=== PATIENT | male | born 1990 | race Hispanic/Latino ===

== ENCOUNTER 2016-07-30 03:02 | Inpatient (IN) | payer SELFPAY ==
[~2016-07-30] VITALS: Ht 157.5 cm; Wt 91.0 kg
[2016-07-30] VITALS (10 sets, daily range): BP systolic 115–157; BP diastolic 61–106; PULSE 65–92; RESP 18–25; O2SAT 88–99
--- NOTE | 2016-07-30 03:06 | ED.REPORT ---
HPI-Overdose/Alcohol Toxicity Date of Service Jul 30, 2016 ED Provider: Luis Fernando Brandt MD Patient is a 25 year old male with a history of polysubstance abuse who presents to the ED after an accidental heroin overdose this morning. This was the first time the patient has ever used heroin, which he smoked. Patient denies using opiate pain medication regularly and states that he did not use Percocet or Vicodin this evening. Patient admitted to his prior to going to bed that he smoked heroin for the first time tonight. She states that he was behaving oddly and seemed very drowsy. After saying dilan, she turned around and found him unconscious after vomiting. She initiated CPR. Patient was found to be cyanotic on arrival with a rate in the 40s. He was found to have vomited and likely aspirated. Patient was in the low 90s on room air. Patient was given 1mg SL Narcan initially while establishing IV access, followed by 1mg Narcan IV. Patient woke up and become agitated. He ultimately was placed into restraints by EMS. Patient is short of breath and coughing on arrival to the ED , with chest pain. He feels fully awake. Patient states that he is otherwise healthy. Nursing Notes Stated Complaint: OVERDOSE Nursing Notes Reviewed: Yes Allergies: Coded Allergies: No Known Allergies (Unverified , 07/30/16) Scheduled Levothyroxine (Levothyroxine) 300 Mcg Tablet 300 MCG PO DAILY General Time Seen by Provider: 03:06 Chief Complaint Drug overdose (accidental) Hx Obtained From: Patient Arrived By: Ambulance Onset Occurred: 1 - 4 hours ago Recent Healthcare: No recent doctor visit, No recent hospitalization Similar Sx Previous: No Past Medical History Past Medical History history of methamphetamine induced psychosis Past Surgical History none reported Smoking History Unknown if Ever Smoker Social History Drug Use: Cocaine, Meth Other Social History: Good social support, Local resident Ambulatory Status Independent Review of Systems Unable to Obtain ROS Mental status (limited by sedation) Respiratory: Reports: Non-productive cough, Shortness of breath Cardiovascular: Reports: Chest pain, Denies: Palpitations GI: Reports: Vomiting Neurologic: Reports: Change LOC Complete sys rev & neg: except as marked. Physical Exam Initial Vital Signs Vital Signs (First) Date Time Temp Pulse Resp B/P Pulse Ox O2 Delivery O2 Flow Rate FiO2 07/30/16 03:14 36.6 81 25 157/106 88 Room Air Initial VS: Reviewed, Vital signs abnormal Head / Eyes: Atraumatic, Normocephalic, PERRL ENT: Conjunctiva normal, No scleral icterus Neck: Supple, Full range of motion Extremities: Vascular intact, Neuro intact Skin: Warm, Dry, No cyanosis General/Constitutional: Awake, Alert Behavior: Positive: Tearful appears drowsy Respiratory / Chest: Breath sounds NL, Breath sounds = bilat, No rales, No rhonchi, No wheezing tachypneic, using accessory muscles of respiration Cardiovascular: Heart rate NL, Regular rhythm, Heart sounds NL Abdomen: Soft, Non-tender, No guarding, No rebound Neurologic: Oriented X3, No motor deficits, No sensory deficits Psychiatric: Affect NL, Mood NL Interpretation & Diagnostics Lab Results Interpretation Result Diagram: 07/30/16 0325 07/30/16 0325 Test 07/30/16 03:25 White Blood Count 13.8th/mm3 (3.8-10.1) Red Blood Count 5.03mil/mm3 (4.40-5.80) Hemoglobin 15.9g/dL (13.8-17.2) Hematocrit 48.2% (41.0-50.0) Mean Corpuscular Volume 95.8fL (81-100) Mean Corpuscular Hemoglobin 31.6pg (27.0-35.0) Mean Corpuscular Hemoglobin Concent 33.0% (32.0-37.0) Red Cell Distribution Width 13.2% (12.3-15.4) Platelet Count 342bil/L (150-400) Neutrophils (%) (Auto) 32.8% (40-74) Lymphocytes (%) (Auto) 56.9% (14-46) Monocytes (%) (Auto) 7.6% (4-12) Eosinophils (%) (Auto) 1.5% (0-5) Basophils (%) (Auto) 0.5% (0-3) Sodium Level 146mEq/L (134-144) Potassium Level 5.0mEq/L (3.5-5.2) Chloride Level 101mEq/L (97-108) Carbon Dioxide Level 22mmol/L (18-29) Blood Urea Nitrogen 17mg/dL (6-20) Creatinine 1.08mg/dL (0.76-1.27) Estimat Glomerular Filtration Rate 87mL/min (>59) Glucose Level 218mg/dL (60-99) Calcium Level 8.1mg/dL (8.5-10.1) Magnesium Level 2.4mg/dL (1.6-2.6) Total Bilirubin 0.3mg/dL (0.0-1.2) Aspartate Amino Transf (AST/SGOT) 88U/L (0-50) Alanine Aminotransferase (ALT/SGPT) 115U/L (0-44) Alkaline Phosphatase 64U/L (25-150) Troponin T 0.010ug/L (0.0-0.011) Pro-B-Type Natriuretic Peptide 33.90pg/mL (0-86) Total Protein 8.3g/dL (6.4-8.4) Albumin 4.8g/dL (3.4-5.0) Acetaminophen Level 15.0ug/mL Rx (10-25) Lab Results Interpretation: Elevated white blood count ECG Interpretation ECG Interpretation: Sinus Rhythm, Rate 76 LAD, consider left anterior fascicular block ST elev, probable normal early repol pattern Time: 03:46 Interpreted by: ED physician X-Ray Chest Interpretation Chest Xray Interpretation: Impression: Increased perihiliar venous markings. Consistent with aspiration pneumonia. View: Portable Interpretation / Wet Read by: Wet read ED physician Re-Eval/Medical Decision Med Decision/Clinical Course 25-year-old male who came back from partying and his noted that he was somewhat sedated. He told her that he had smoked heroin. She believes that he does not use heroin or other opiates on a regular basis. He went to bed and very soon thereafter she noticed that he was not breathing. 911 was called. His O2 saturations was in the 70s upon their arrival, his respirations were shallow, and his heart rate was down at 40. He had vomited and had very noisy respirations. He was given Narcan and he improved but became a little combative. He was maintained on oxygen and transported here. Upon arrival here he was calm and communicative, and fully oriented. His white count was mildly elevated. On chest x-ray he had some increasing vascular engorgement in the perihilar areas. There is no obvious infiltrate. He was started on triple antibiotic coverage for suspected aspiration pneumonitis. Blood culture was not done because of the likely absence of infection in this diagnosis at this time stage. Case was discussed with Dr. Kebede and the patient will be admitted to the hospitalist service. Transitional orders were written for him to go to [facility]. Source of Hx: Old records Re-Evaluation/Progress #1: Time of Eval: 03:38 Re-Evaluation/Progress Note: Rechecked the patient, who is joined by his family and . She confirms that he simply came home and stated that he had tried heroin. They went to bed and she stated that he was behaving abnormally. She reports that he does not use narcotic pain medication regularly, but he does use Vicodin sometimes. She will convince the patient to stay in the hospital. Re-Evaluation/Progress #2: Time of Eval: 05:28 Patient Status: Condition improved Re-Evaluation/Progress Note: Rechecked the patient to discuss the results of his chest x-ray and labs. He is at 90% on 15L rebreather mask. He is sedated but awake, with increased work of breathing. Patient understands and agrees with the plan to be admitted to the hospital. All questions were addressed. Consultation : Referral / Consult Name: Pablo Kebede MD Consulted With: Hospitalist Call Returned at: 05:31 Sliver Cutter: Will see patient, Agrees with eval, Agrees with plan, Accepts admit Note: Spoke with Dr. Kebede, hospitalist, about the patient's case. All questions were addressed. Counseled Regarding: Diagnosis, Lab results, Need for admission Discharge & Departure Impression: Primary Impression: Accidental heroin overdose Encounter type: initial encounter Qualified Code: T40.1X1A - Poisoning by heroin, accidental (unintentional), initial encounter Additional Impression: Aspiration pneumonia Aspiration pneumonia type: unspecified Laterality: bilateral Lung location : unspecified part of lung Qualified Code: J69.0 - Pneumonitis due to inhalation of food and vomit )( Condition at Discharge: No danger to self Disposition: ADMITTED TO HOSPITAL Discharge Condition All VS Reviewed: Yes Condition: Stable Referrals: Alirio Beaver MD (PCP) Crit Care Except Billable Proc Time Spent: 30-74 minutes Services Performed: Patient management by me, Time spent at bedside, Reviewing test results, Reviewing imaging, Discussing patient care, Documentation in record Scribe Attestation Portions of this note were transcribed by Charlene Chang. I, Dr. Brandt personally performed the history, physical exam and medical decision-making; I reviewed and confirmed the accuracy of the information in the transcribed note. Signed by: Jenny Davidson, 07/30/2016 0536 copies to: Alirio Beaver MD, Howard L MD Jul 30, 2016 03:05 Charlene Chang Jul 30, 2016 03:16
[2016-07-30] MEDS ORDERED: 0.9% Sodium Chloride 1,000 ML IV ONE (03:25)
[2016-07-30 03:35] LABS: BASOPHILS % (AUTO) 0.5 % (0-3); EOSINOPHILS % (AUTO) 1.5 % (0-5); MONOCYTES % (AUTO) 7.6 % (4-12); Mean Corpuscular Hemoglobin 31.6 pg (27.0-35.0); Mean Corpuscular Volume 95.8 fL (81-100); NEUTROPHILS % (AUTO) 32.8 % (40-74); Platelet Count 342 bil/L (150-400)
[2016-07-30 03:54] LABS: Magnesium 2.4 mg/dL (1.6-2.6); TROPONIN T 0.01 ug/L (0.0-0.011)
[2016-07-30] MEDS ORDERED: Vancomycin Dose per Pharmacist XX ONE (05:15)
[2016-07-30] MEDS ORDERED: Piperacillin-Tazo 3.375 Gm Inj 3.375 GM in Dextrose 5% Minibag Plus 50 ML IV ONE (05:15)
[2016-07-30] MEDS ORDERED: levoFLOXacin Inj 750 MG in IV Premix 1 EACH IV ONE (05:15)
[2016-07-30] MEDS ORDERED: Ondansetron 2 mg/mL 2 mL Inj IVPUSH PRN (06:20)
[2016-07-30] MEDS ORDERED: Vancomycin Inj 1,750 MG in Dextrose 5% 500 ML IV ONE (06:20)
[2016-07-30] MEDS ORDERED: Alum-Mag Hydrox-Simeth 30 mL Suspension PO PRN (06:20)
[2016-07-30] MEDS ORDERED: LEVO300T5 PO (06:30)
[2016-07-30] MEDS: Dextrose 5% 0.45% NaCl 1,000 ML IV SCH ×3 (06:44→20:06)
--- NOTE | 2016-07-30 07:08 | NUR ---
Admit To floor from ED at 0610. Drowsy and snoring. Able to state name and where he is, but unable to state year. Accompanied by and sister, who provided information for admit questions. Sats in mid-90's on 15 liters non rebreather. SCDs placed on patient. states he declines flu vaccine. Plan of care explained. IV patent and antibiotics/IV fluids infusing without problems. Report to oncoming RN.
--- NOTE | 2016-07-30 08:57 | DRSVH ---
PROCEDURE: X-RAY CHEST ONE VIEW, PORTABLE ([id number]) INDICATIONS: tachypnea after heroin OD and Narcan TECHNIQUE: One view of the chest was acquired. COMPARISON: None. FINDINGS: Surgical changes and devices: None. Lungs and pleura: No pleural effusions or pneumothorax. Lungs are clear and lung volumes are low. Mediastinum: Mediastinal contours appear normal. Heart size is normal. Bones and chest wall: No suspicious bony lesions. Overlying soft tissues appear unremarkable. IMPRESSION: Expiratory chest demonstrating no definite acute cardiopulmonary disease. Dictated by: Oliver Collazo Arely Interpreted: Jenae Stapleton MD on 07/30/2016 at 8:56 Transcribed by: SURJIT on 07/30/2016 at 8:56 Approved by: Jenae Stapleton M.D. on 07/31/2016 at 16:18
--- NOTE | 2016-07-30 11:11 | NUR ---
Social Work Note: Screen Note Data& Assessment: EMR reviewed. Gurvinder Florez is a 25 year old male admitted on 07/30/2016 for heroin OD and aspiration pneumonitis. Pt is listed as Self Pay insurance, SW contacted [facility] and requested they screen him for coverage. Pt lives in [place] with his spouse. Per ED MD notes, pt had accidental overdose when trying heroin for the first time. SW to follow up with pt at bedside regarding CD assessment and assess for any unmet needs. SW to continue to follow. Plan: Anticipated discharge home via POV when medically ready. SW to follow up with pt at bedside regarding CD assessment and assess for any unmet needs. SW to continue to follow. ANTHONY Downs
[2016-07-30] MEDS: HYDROcodone-APAP 5-325 mg Tablet PO PRN ×3 (14:41→21:55)
--- NOTE | 2016-07-30 15:59 | PCM.PNMED ---
Subjective Date of Service Jul 30, 2016 Subjective He denies any pain or shortness of breath at the time of interview. He denies any abdominal discomfort and nausea or diarrhea. He still feels a little sleepy. Exam Vital Signs Vital Sign - Last Date Time Temp Pulse Resp B/P Pulse Ox O2 Delivery O2 Flow Rate FiO2 07/30/16 12:40 37.5 68 18 115/71 96 OxyMask 12.00 Intake and Output 07/29/16 07/29/16 07/30/16 Cumulative From/Thru 15:00 23:00 07:00 07/30/16 03:14 - 07/30/16 06:18 Intake Total 1000 ml 1000 ml Balance 1000 ml 1000 ml Intake IV Total 1000 ml 1000 ml Exam Alert oriented 3, somewhat lethargic. Pupils symmetric. Neck supple. Lungs are clear with normal effort and no wheezing heart is regular without murmur. Abdomen is soft nontender. Extremities are free of edema and good pedal pulses Extensive tattoos over torso and neck. IVs and Medications Medications Reviewed: Medications were reviewed in detail Lab and Diagnostics Result Diagram: 07/30/16 0325 07/30/16 0325 Assessment & Plan 1. Palpable chemical pneumonitis with acute hypoxic respiratory failure, POA. This relates to smoking ablation of heroin. We will continue to support the clinical observation and supplemental oxygen. 2. Heroin overdose, POA. The patient is given Narcan appears to be relatively stable clinically at the current time. This patient will likely require another night of observation I given a probable significant pneumonitis with his acute hypoxic respiratory failure. Need telemetry monitoring as well. Pain Evaluation: Adequate Pain Control VTE Mechanical Devices: Intermittant Pneumatic CD Resuscitation Status: CPR: Attempt Resuscitation Time spent 25 minutes Abdi Sidhu MD Jul 30, 2016 15:59
[2016-07-30] MEDS ORDERED: LEVO200T6 PO (16:01)
--- NOTE | 2016-07-30 17:22 | DRSVH ---
PROCEDURE: X-RAY CHEST, TWO VIEWS ([id number]) INDICATIONS: dyspnea TECHNIQUE: 2 views of the chest were acquired. COMPARISON: [facility], CR, XR CHEST 1VW (PORTABLE), 07/30/2016, 3:28. FINDINGS: Surgical changes and devices: None. Lungs and pleura: No pleural effusions or pneumothorax. Increasing airspace opacity involving the m id left lung and the lung bases. Mediastinum: Mediastinal contours are normal. Heart size is normal. Bones and chest wall: No suspicious bony abnormalities. Soft tissues appear unremarkable. IMPRESSION: Findings suspicious for worsening aspiration or pneumonia. Dictated by: Oliver Collazo RRA Interpreted: Gretchen Barajas MD on 07/30/2016 at 17:10 Transcribed by: MARINA on 07/30/2016 at 17:11 Approved by: Gretchen Barajas MD, PhD on 07/30/2016 at 17:25
--- NOTE | 2016-07-30 17:25 | PCM.HPMED ---
Subjective Date of Service Jul 30, 2016 Primary Provider: Admitting Physician: Pablo Kebede MD Primary Care Physician: Nopcp Attending Physician: Pablo Kebede MD Admit Status: From the Emergency Department, Admit to [facility], [facility] Telemetry Chief Complaint: Dyspnea, aspiration, and heroin overdose History of Present Illness: This is a 25-year-old gentleman who arrived home after going out with friends. His found him to be somewhat adamant behavior and lethargic. The time at that time he admitted that he had smoked heroin for the first time. He then became progressively unresponsive and threw up. He then appeared to not be breathing and 911 was called. Apparently CPR was administered for a short time. The patient was given sublingual Narcan and relatively after an IV is placed as given IV Narcan. He did arouse at that time. He did have obvious hypoxia and needed oxygen to maintain saturations. He was brought to the ER. Chest x-ray there was negative for acute infiltrate. The patient has done well with some residual lethargy. He denies any chest pain. He also denies any other ingestions. Review of Systems: Dyspnea, no cough. No fevers or chills. He denies any abdominal pain nausea vomiting or diarrhea. No recent URI symptoms muscle pain. Also reviewed and otherwise negative except as noted in history of present illness. Allergies Coded Allergies: No Known Allergies (Unverified , 07/30/16) Home Medications None. PMH None Surgical History Unremarkable Family History No CAD Social History Hx Alcohol Use: No Hx Substance Use: Yes (cocaine, meth) Smoking Status: Unknown if Ever Smoker Living Arrangement: with Family Exam Vital Signs Vital Sign - Last Date Time Temp Pulse Resp B/P Pulse Ox O2 Delivery O2 Flow Rate FiO2 07/30/16 16:27 36.9 72 18 117/66 96 OxyMask 12.00 Intake and Output 07/29/16 07/29/16 07/30/16 Cumulative From/Thru 15:00 23:00 07:00 07/30/16 03:14 - 07/30/16 06:18 Intake Total 1000 ml 1000 ml Balance 1000 ml 1000 ml Intake IV Total 1000 ml 1000 ml Exam Alert and oriented times 3. Fluent speech Normal skull Nose and ears normal Normal mouth, no droop. Anicteric sclera, conjugate gaze. Normal neck, and thyroid. No adenopathy. Lungs clear, normal effort. CV regular rate and no murmur. Abdomen soft, NT No edema No rash Normal joints Normal gait and strength Lab and Diagnostics Result Diagram: 07/30/1632407/30/16324 X-Rays, CTs and MRIs CXR normal 12-lead ECG NSR without acute changes. Assessment & Plan 1. Palpable chemical pneumonitis with acute hypoxic respiratory failure, POA. This relates to smoking ablation of heroin. We will continue to support the clinical observation and supplemental oxygen.. Will continue the empiric Abx. 2. Heroin overdose, POA. The patient is given Narcan appears to be relatively stable clinically at the current time. This patient will likely require another night of observation I given a probable significant pneumonitis with his acute hypoxic respiratory failure. Need telemetry monitoring as well. Pain Evaluation: Adequate Pain Control VTE Mechanical Devices: Intermittant Pneumatic CD Resuscitation Status: CPR: Attempt Resuscitation Time spent 40 minutes Abdi Sidhu MD Jul 30, 2016 17:25
--- NOTE | 2016-07-30 18:17 | NUR ---
Activity/respiratory/pain Pt up SBA to bathroom. Steady gait, denies any dizziness. Pt desats to low 90s when up,but recovers quickly. Currently on 12L oxymask, sats in the mid 90s. Pt reports pain in ribs due to CPR done in field. Got order for vicodin. Gave with minimum to moderate relief. Pt mostly complaining of pain with movement. Family at bedside.
[2016-07-30] MEDS ORDERED: HYDROcodone-APAP 5-325 mg Tablet PO ONE (21:50)
[2016-07-31] MEDS: HYDROcodone-APAP 5-325 mg Tablet PO PRN ×3 (02:08→12:17)
[2016-07-31 03:20] VITALS: BP 125/67; PULSE 66; RESP 19; O2SAT 97
--- NOTE | 2016-07-31 05:02 | NUR ---
Pain / Respiratory Pt c/o significant pain to ribs with movement, states 8/10 pain at beginning of shift, 2 Vicodin administered with no relief upon reassessment. paged, one additional Vicodin tab administered, pt reports pain reduced to 7/10. Pt able to rest this shift. Vicodin administered again at approx. 0200 without relief upon reassessment, pt states "It hasn't kicked in yet." Pt resting upon later assessment. Ongoing oxygen weaning in place, pt reduced from 13L oxymask at beginning of shift to 4L NC at present, oxygen saturation at 96-97%. Pt states "It feels like I have a hard time drawing a deep breath", educated to expected recovery symptoms from CPR. VSS. Tele SR 80s.
[2016-07-31] MEDS: Dextrose 5% 0.45% NaCl 1,000 ML IV SCH (05:56)
[2016-07-31 08:30] VITALS: BP 138/72; PULSE 73; RESP 18; O2SAT 97
[2016-07-31 08:35] VITALS: PULSE 73
[2016-07-31 08:39] LABS: Mean Corpuscular Hemoglobin 31.4 pg (27.0-35.0); Mean Corpuscular Volume 94.9 fL (81-100)
[2016-07-31 09:30] VITALS: PULSE 73
--- NOTE | 2016-07-31 10:22 | DRSVH ---
PROCEDURE: X-RAY CHEST, TWO VIEWS ([id number]) INDICATIONS: dyspnea TECHNIQUE: 2 views of the chest were acquired. COMPARISON: [facility], CR, XR CHEST 2VW, 07/30/2016, 16:00. FINDINGS: Surgical changes and devices: Multiple surgical clips bilaterally in the thyroid region, suspect prio r thyroidectomy. Lungs and pleura: No pleural effusions or pneumothorax. Lungs are again seen to be abnormal with a persistent right lower lobe and left lower lobe pneumonia pattern. Mediastinum: Mediastinal contours are normal. Heart size is normal. Bones and chest wall: No suspicious bony abnormalities. Soft tissues appear unremarkable. IMPRESSION: Bibasilar pneumonia, left greater than right. No pleural effusion found. Mildly reduced inspiratory volume. Prior thyroidectomy. If underlying pulmonary metastatic disease is clinically suspected contrast enh anced CT scanning would be recommended. Dictated by: Ranjit Velazquez M.D. on 07/31/2016 at 10:19 Approved by: Ranjit Velazquez M.D. on 07/31/2016 at 10:20
--- NOTE | 2016-07-31 10:57 | PCM.DIMED ---
Discharge Instructions Date of Service Jul 31, 2016 Dates of Hospitalization Jul 30, 2016 at 06:00 Discharge Diagnosis Discharge Diagnosis 1. Heroin overdose 2. Aspiration pneumonia Diet Heart Healthy Activity Limited until seen by PCP Patient Instructions residents clinic within a week Follow-up Provider: BRENDA QUINTERO MD, Allen L MD Jul 31, 2016 10:57
[2016-07-31] MEDS ORDERED: AMOX-366 PO (10:58)
[2016-07-31] MEDS ORDERED: LEVO200T6 PO (10:58)
[2016-07-31] MEDS ORDERED: HYDR-4003 PO (11:10)
--- NOTE | 2016-07-31 11:49 | NUR ---
Social Work Note: CD Assessment Current Circumstances: John Florez is a 25 year old male admitted for heroin overdose and aspiration pneumonitis. SW met with pt at bedside to offer CD resources and confirm this overdose was accidental. Pt explained he was feeling particularly stressed out because of finances and legal matters and tried the heroin to help cope. Hx of substance use: Pt explained this was the first time he has ever tried heroin and accidently overdosed. Pt reports hx of heavy alcohol use last year which resulted in two DUI's. Pt denies any current or recent alcohol use. Pt denies any other drug use. Hx of tx programs/detox: Pt is currently participating in outpt alcohol tx in result of his two DUI's. Pt explained it has helped him avoid alcohol. Hx of w/d symptoms: Pt denies any hx of w/d symptoms. Pt explained he did not drink heavily consistently and is behaviors aligned more with binge drinking during events or celebrations. Family hx: NA Hx of sobriety and supports: Pt is a positive support for him. Pt denies dependence with any substances but does report no alcohol use in the last year. Patients perception of the consequences of use: Pt reflects on the fact that taking the heroin "was not a smart thing to do." Pt does not plan on using any drugs again as the accidental overdose frightened both he and his . Suicide Risk: Pt denies that this was a suicide attempt. Pt denies any hx of feeling suicidal. Pt denies any current thoughts of harming himself or others. Pt explained he is feeling overwhelmed and "stressed out with bills. I haven't done anything wrong since last year, I try to pay my bills and then more bills come." Pt reports heavy debt due to his bail form his DUI and still struggling with financial and legal repercussions form those DUI's. SW provided resource list and highlighted the crisis line number in case pt does become so stressed out or overwhelmed he begins to feel suicidal. SW also highlighted legal assistance resource information for pt. Motivation for tx: Pt has motivation to remain clean and sober and continue outpt alcohol tx for extra support. Discharge Plan: Pt to discharge home with , via POV. Pt denies any other needs. No other discharge needs identified. ANTHONY Downs
--- NOTE | 2016-07-31 12:19 | NUR ---
Social Work Note: Discharge Data& Assessment: Per pt is medically improved and ready to discharge home via POV with . SW met with pt at bedside to confirm discharge plan and assess for any unmet needs. John Florez is a 25 year old male admitted on 07/30/2016 for accidental heroin overdose and apsiration pneumonitis. Pt confirmed repeatedly that this was an accidental overdose due to trying heroin for the first time. Pt was accepting of resources (See CD assessment note). Pt confirmed his will be transporting him home today. Pt denies any other needs. No other discharge needs identified. Plan: Per pt is medically improved and ready to discharge home via POV with . Pt confirmed his will be transporting him home today. Pt denies any other needs. No other discharge needs identified. ANTHONY Downs
--- NOTE | 2016-07-31 12:44 | NUR ---
Discharge note Patient a/ox 4, c/o rib pain,8-9/10 pain meds given with moderate effect. Patient oob amb indep steady gait. VSS, tele SR. IV SL and tele removed intact. Patient given discharge instructions, prescriptions, info on diagnosis and new meds. All questions answered. Patient taken to the car with all belongings and discharged home with family.
--- NOTE | 2016-07-31 13:24 | PCM.DC.MED ---
Discharge Summary Date of Service Jul 31, 2016 Dates of Hospitalization Date of Hospital Admission Jul 30, 2016 at 06:00 Date of Discharge: Jul 31, 2016 Providers: Admitting Physician: Pablo Kebede MD Primary Care Physician: N[place]maurice Attending Physician: Pablo Kebede MD Diagnosis at Time of Discharge Diagnosis at Time of Discharge 1. Heroin overdose 2. Aspiration pneumonia Consultations None Procedures XRay, CTs & MRIs CXR normal on admission. Second chest x-ray indicates bibasilar infiltrates consistent with aspiration pneumonia versus pneumonitis. ECG 12 Lead NSR without acute changes. Invasive Procedures None Brief History This is a 25-year-old gentleman who arrived home after going out with friends. His found him to be somewhat adamant behavior and lethargic. The time at that time he admitted that he had smoked heroin for the first time. He then became progressively unresponsive and threw up. He then appeared to not be breathing and 911 was called. Apparently CPR was administered for a short time. The patient was given sublingual Narcan and relatively after an IV is placed as given IV Narcan. He did arouse at that time. He did have obvious hypoxia and needed oxygen to maintain saturations. He was brought to the ER. Chest x-ray there was negative for acute infiltrate. The patient has done well with some residual lethargy. He denies any chest pain. He also denies any other ingestions. Hospital Course 1. Palpable chemical pneumonitis with acute hypoxic respiratory failure, POA. This relates to smoking ablation of heroin. We will continue to support the clinical observation and supplemental oxygen.. Will continue the empiric Abx. 2. Heroin overdose, POA. The patient is given Narcan appears to be relatively stable clinically at the current time. This patient will likely require another night of observation I given a probable significant pneumonitis with his acute hypoxic respiratory failure. Need telemetry monitoring as well. Hospital course. Patient is admitted with somnolence and vomiting with aspiration after heroin overdose by smoking. The patient was given Narcan in the field and ER. Initially had an acute hypoxic respiratory failure and was covered empirically with antibiotics for possible aspiration. Serial chest x- ray did confirm evidence of pneumonia versus pneumonitis. His hypoxic failure however did improve. On the day of discharge she felt that her near baseline. He was given transient CPR in the field and LAD had some left-sided anterior chest tenderness from his CPR. Denied a history of drug use or other drug use. He stated that this is the first time he had tried heroin however and plans not tried again. Exam Vital Signs (Last) Date Time Temp Pulse Resp B/P Pulse Ox O2 Delivery O2 Flow Rate FiO2 07/31/16 09:30 73 07/31/16 08:30 37.3 18 138/72 97 Room Air 07/31/16 03:20 4.00 Exam Alert oriented in no acute distress. Lungs clear, normal effort. Heart is regular without murmur. Abdomen is soft. Extremities are free of edema. Multiple tattoos. Fluent speech Test 07/30/16 03:25 07/31/16 08:25 Neutrophils (%) (Auto) 32.8% (40-74) Lymphocytes (%) (Auto) 56.9% (14-46) Monocytes (%) (Auto) 7.6% (4-12) Eosinophils (%) (Auto) 1.5% (0-5) Basophils (%) (Auto) 0.5% (0-3) Magnesium Level 2.4mg/dL (1.6-2.6) Troponin T 0.010ug/L (0.0-0.011) Pro-B-Type Natriuretic Peptide 33.90pg/mL (0-86) Acetaminophen Level 15.0ug/mL Rx (10-25) White Blood Count 13.3th/mm3 (3.8-10.1) Red Blood Count 4.30mil/mm3 (4.40-5.80) Hemoglobin 13.5g/dL (13.8-17.2) Hematocrit 40.8% (41.0-50.0) Mean Corpuscular Volume 94.9fL (81-100) Mean Corpuscular Hemoglobin 31.4pg (27.0-35.0) Mean Corpuscular Hemoglobin Concent 33.1% (32.0-37.0) Red Cell Distribution Width 13.5% (12.3-15.4) Platelet Count 239bil/L (150-400) Sodium Level 138mEq/L (134-144) Potassium Level 4.0mEq/L (3.5-5.2) Chloride Level 104mEq/L (97-108) Carbon Dioxide Level 25mmol/L (18-29) Blood Urea Nitrogen 9mg/dL (6-20) Creatinine 0.74mg/dL (0.76-1.27) Estimat Glomerular Filtration Rate 135mL/min (>59) Glucose Level 107mg/dL (60-99) Calcium Level 8.1mg/dL (8.5-10.1) Total Bilirubin 0.5mg/dL (0.0-1.2) Aspartate Amino Transf (AST/SGOT) 25U/L (0-50) Alanine Aminotransferase (ALT/SGPT) 52U/L (0-44) Alkaline Phosphatase 40U/L (25-150) Total Protein 5.8g/dL (6.4-8.4) Albumin 3.7g/dL (3.4-5.0) Discharge Medications Discharge Medications Amoxicillin/Clav K 875-125 mg (Augmentin 875-125 mg) 1 Each Tablet 1 TABLET PO BID Prescribed by: ABDI CANNON MD Levothyroxine (Levothyroxine) 200 Mcg Tablet 200 MCG PO DAILY Prescribed by: ABDI CANNON MD As needed Hydrocodone-Acetaminophen 5-325 mg (Hydrocodone-Acetaminophen 5-325 mg) 1 Each Tablet 1 TABLET PO Q4H PRN PRN For Pain Prescribed by: ABDI CANNON MD Followup Plan Disposition: Home, with Discharge Diet: Heart Healthy Discharge Activity: Limited until seen by PCP Patient Instructions residents clinic within a week Follow-up Provider: BRENDA QUINTERO MD Time spent 40 minutes Abdi Cannon MD Jul 31, 2016 13:24
== END 2016-07-31 12:45 | disposition home or self-care (01) | DRG 917 ==
LOC: SED 03:02 → PCC 05:55
PROVIDERS: ADMIT Hospitalist; ATTEND Hospitalist
DX: T40.1X1A Poisoning by heroin, accidental (unintentional), initial encounter (principal); J69.0 Pneumonitis due to inhalation of food and vomit; J96.01 Acute respiratory failure with hypoxia; J68.0 Bronchitis and pneumonitis due to chemicals, gases, fumes and vapors; Y92.009 Unspecified place in unspecified non-institutional (private) residence as the place of occurrence of the external cause